=== PATIENT | female | born 1940 | race Caucasian/White ===

== ENCOUNTER 2016-05-17 09:15 | Day surgery (SDC) | payer OTHER ==
[2016-05-17] VITALS (14 sets, daily range): BP systolic 155–207; BP diastolic 59–114; PULSE 72–93; RESP 10–19; O2SAT 95–100
[~2016-05-17] VITALS: Ht 157.5 cm; Wt 53.5 kg
[~2016-05-17 09:15] MED LIST: ASPI-973 PO; CALC-243 PO; CeFAZolin Inj 2 GM in IV Premix 1 EACH IV ONE; EPIN0.3P2 IJ; MULT-1018 PO
[2016-05-17] MEDS ORDERED: Ondansetron 2 mg/mL 2 mL Inj ONE (09:16)
[2016-05-17] MEDS ORDERED: Dexamethasone 4 mg/mL Inj ONE (09:16)
[2016-05-17] MEDS ORDERED: fentaNYL-PF 50 mCg/mL 2 mL Inj ONE (09:16)
[2016-05-17] MEDS ORDERED: Propofol 10,000 mCg/mL 20 mL Inj ONE (09:16)
[2016-05-17] MEDS ORDERED: Bupivacaine-MPF 0.25% 30 mL Inj ONE (09:16)
[2016-05-17] MEDS ORDERED: Bupivacaine 0.5% 50 mL Inj ONE (09:16)
[2016-05-17] MEDS: Lactated Ringer's 1,000 ML IV SCH ×2 (09:20→11:57)
--- NOTE | 2016-05-17 11:01 | PCM.HPANE ---
Patient Data Surgeon Admitting Provider: Attending Provider:Doc Vasquez MD Primary Care Physician:Alanna Carl Other Provider: Reason for Visit Left Tibial Plateau Fracture Ht/WT & BMI Height (Feet): 5 Height (Inches): 2 Weight (Kilograms): 53.5 Body Mass Index 21.00 Allergies Uncoded Allergies: BEE STINGS (Allergy, Unknown, UNKNOWN, 05/13/16) Past Anesthesia History Anesthesia History: Denies:: Fam Anesthesia Reaction, Fam Malignant Hypertherm Diabetes History Hx Diabetes?: No MRSA MRSA: No Medications Blood Thinner: Aspirin Hypertension Medication: No Home Meds Incl Beta Sandie: No Reported Medications Multivitamin (Multi Vitamin Daily)1 Each Tablet1 Each PO DAILY 30 Days Ref 0 05/13/16 Epinephrine (Epipen 2-Reinier)0.3 Mg/0.3 Ml Auto.injct0.3 Mg IJ PRN 05/13/16 Calcium Carbonate/Vitamin D3 (Calcium 600 + Vit D Tablet)1 Each Tablet1 Each PO DAILY 05/13/16 Aspirin 81 Mg [id number] Mg PO DAILY Ref 0 05/13/16 History History of ENT Problems?: Yes HEENT History: Positive for:: Hearing Problem Hx of Heart Problems?: Yes Cardiovascular History: Positive for:: Hypertension (TRANSIENT HTN, HYPERLIPIDEMIA) Denies:: Heart Murmur Hx of Respiratory Problem?: No Respiratory History: Denies:: Use of C-PAP Machine Hx Neurologic Problems?: No Hx of GI Problems?: No Hx of Problems?: No Genitourinary History: Positive for:: Urinary Tract Infection Female Hx: Denies:: Currently Skin History: Positive for:: History 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) Denies:: Pressure Ulcers Hx Musculoskeletal Problems?: Yes Musculoskeletal History: Positive for:: Musculoskeletal Trauma (LT TIBIAL PLATEAU FX=CURRENT PROBLEM) Denies:: Osteoarthritis (OSTEOPOROSIS) Hx of Psycho/Social Problems?: Yes Psycho Social History: Positive for:: Anxiety (GETS "UPSET" EASILY) Hx Surgeries?: No Hx Any Other Health Problems?: No Other History: Denies:: Cancer Endocrine Disease Hospitalization Thyroid Disease History Blood Transfusions: Denies:: Blood Transfusions Hx Diabetes: No Hx Alcohol Use: Yes (OCCAS)Hx Substance Use: NoHave You Smoked inLast 12 mo: No Stop/Bang S-Snoring: Do You Snore Loudly: No T-Tired: feel tired, fatigued: No O-Obsered: Observed not breath: No P-Blood Pressure: treated: Yes B- Body Mass Index > 35 kg/m2: No A- Age over 50: Yes N- Neck Large Circumference: No G- Gender Male: No TEJINDER Total Score: 2 TEJINDER Risk Assessment: Low Risk, <3 Yes Risk Assessment Category Category 1A: Patient has history of documented sleep apnea, and HAS NOT received any narcotic, sedative or anesthesia administration during this stay. Category 1B: Patient has history of documented sleep apnea, and HAS received any narcotic , sedative or anesthesia administration during this stay Category 2: Patient has SUSPECTED Obstructive Sleep Apnea, and HAS received any narcotic , sedative or anesthesia administration during this stay. Category 3: Patient has SUSPECTED Obstructive Sleep Apnea and HAS NOT received narcotic, sedative or anesthesia administration during this stay. Category 4: Outpatient in Procedural Areas with known sleep apnea or who screen positive for High Risk via the STOP/BANG questionnaire. Exam Exam Vital Signs Vital Signs Date Time Temp Pulse Resp B/P Pulse Ox O2 Delivery O2 Flow Rate FiO2 05/17/16 09:45 72 16 159/59 97 Room Air General Appearance: Alert, Oriented X3, Cooperative, No Acute Distress HEENT/AIRWAY: MP 2 Lungs: Clear to Auscultation, Normal Air Movement Heart: Exam Unremarkable, Regular Rate/Rhythm, No Murmurs/Rubs/Gallops Meds/Labs/Diagnostics Admission Meds Current Medications Lactated Ringer's (Lr) 1,000 ml @ 120 mls/hr [id number] IV Last administered on t 09:20; Start 05/17/16 at 05:00; Stop 05/17/16 at 13:19 Plan Impression Patient chart reviewed, patient interviewed and anesthestic plan with risks, benefits, and alternatives discussed, and informed consent obtained. NPO Status: 2100 05/16/16 ASA Physical Status: ASA2 Mod Systemic Disease Anesthetic Plan: GA Bene/Risks/Altern/Consents: Yes HP Complete Prior to Induction: Yes Other LMA gen plus adductor canal block at request of dr Pedro Cifuentes,Pascual Grijalva MD May 17, 2016 11:01
[2016-05-17] MEDS ORDERED: hydrALAZINE 20 mg/mL Inj IVPUSH PRN (12:05)
[2016-05-17] MEDS ORDERED: HYDROmorphone 1 mg/mL Inj IVPUSH PRN (12:05)
[2016-05-17] MEDS ORDERED: Dexamethasone 4 mg/mL Inj IVPUSH PRN (12:05)
[2016-05-17] MEDS ORDERED: fentaNYL-PF 50 mCg/mL 2 mL Inj IVPUSH PRN (12:05)
[2016-05-17] MEDS ORDERED: MetoCLOpramide 5 mg/mL 2 mL Inj IVPUSH PRN (12:05)
[2016-05-17] MEDS ORDERED: Lactated Ringer's 1,000 ML IV SCH (12:05)
[2016-05-17] MEDS ORDERED: Labetalol 5 mg/mL 4 mL Inj IV PRN (12:05)
[2016-05-17] MEDS ORDERED: Ondansetron 2 mg/mL 2 mL Inj IVPUSH PRN (12:05)
[2016-05-17] MEDS ORDERED: Phenylephrine 10,000 mCg/mL Inj IVPUSH PRN (12:05)
[2016-05-17] MEDS ORDERED: Atropine 0.4 mg/mL Inj IVPUSH PRN (12:05)
[2016-05-17] MEDS ORDERED: EPHEDrine Sulfate 50 mg/mL Inj IVPUSH PRN (12:05)
[2016-05-17] MEDS ORDERED: Lactated Ringer's 500 ML IV PRN (12:05)
[2016-05-17] MEDS ORDERED: HYDROcodone-APAP 5-325 mg Tablet PO PRN (13:40)
[2016-05-17] MEDS ORDERED: Ketorolac 15 mg/mL Inj IVPUSH ONE (13:40)
--- NOTE | 2016-05-17 13:47 | PCM.ORTHOP ---
Orthopedic Operative Report Date of Service: May 17, 2016 Pre Operative Diagnosis Left both column tibial plateau fracture Post Operative Diagnosis Same Procedure Left tibial plateau, bicondylar, open reduction internal fixation with cancellus allograft Surgeon Surgeon: Doc Vasquez MD Assistants: Poncho Krishnamurthy Indication for Procedure Left tibial plateau fracture Findings Per dictation Details of Procedure Estimated Blood Loss: 10 mL Implant: Synthes 3.5 proximal tibia locking plate; cancellous allograft Indications: The patient is Carmen Don who is a 35-year-old female status- post a tibial plateau fracture. The risks, benefits, indications and alternatives of open reduction internal fixation were discussed with the patient in detail. The patient voiced understanding of the risks and agreed to proceed. All questions were answered to the patient's satisfaction. Verbal and written consent were obtained. Description of Operation: The patient was brought to the operating room. Patient name and surgical site were confirmed. Preoperative antibiotics were given. The patient was placed supine on the table. General anesthesia was administered. The leg was prepped and draped in the usual sterile fashion. A 10 cm lateral parapatellar incision was made. Subcutaneous dissection was sharply performed down to the iliotibial band. The meniscus was elevated and tagged with a #1 Ethibond for later repair. The lateral meniscus was mobilized and retracted proximally to visualize and probe the joint. The step off in the joint was noted along the lateral plateau with comminution and 1 cm depression. Using fluoroscopy, a bone window was made and a curved bone tamp was used to elevate the significantly depressed joint. A provisional K-wire was placed to hold the joint elevated. The Synthes 3.5 locking plate was then applied and affixed proximally and distally. Fluoroscopy determined excellent alignment of both fracture which was no longer depressed and position of the plate. 10 mL of cancellous allograft was then used through the bone window created to fill the defect from the elevated joint line. The medial column was supported with locking screws across the fracture site. The fracture was well reduced as confirmed with C-arm in AP and lateral views. All wounds were thoroughly irrigated by bulb irrigation. Hemostasis was obtained with electrocautery. The meniscus was reaffixed with 2.0 Fiberwire. The IT band was closed with 0 Vicryl. The subcutaneous space was closed with interrupted 2-0 Vicryl suture. The skin was closed with 2.0 Proline suture. The patient was extubated without difficulty and transferred to the PACU in stable condition. I was present for and supervised the entire procedure(s). Continue nonweightbearing left lower extremity for 6-8 weeks or until radiographic healing noted. Please take aspirin daily 81 mg for the next 4 weeks. Keep wound dry until 2 weeks. Grafts, Implants: Implants-See Implant Record Complications There were no periprocedural complications identified. Condition Stable Anesthetic Administered: GA Catheters: None Output, Estimated Blood Loss: 10 Blood Admin during surgery: No Surgical Cast or Splint: Post-op Knee Brace Surgical Specimen Removed: No Specimen sent to Pathology: No copies to: Doc Vasquez MD, Christopher L MD May 17, 2016 13:47
[2016-05-17] MEDS ORDERED: HYDROmorphone 0.5 mg/0.5 mL iSecure Syringe ONE (14:04)
--- NOTE | 2016-05-17 14:15 | PCM.ANEP1 ---
Post Anesthesia Phase 1 PACU Phase 1 Assessment Date of Service: May 17, 2016 Vital Signs Vital Signs Date Time Temp Pulse Resp B/P Pulse Ox O2 Delivery O2 Flow Rate FiO2 05/17/16 14:05 82 11 173/82 99 Nasal Cannula 2 05/17/16 13:55 85 10 189/83 95 Nasal Cannula 2 05/17/16 13:50 90 18 201/88 100 Room Air 05/17/16 13:45 89 19 200/114 100 Room Air 05/17/16 13:40 91 19 207/78 100 Simple Mask 8 05/17/16 13:35 90 16 171/93 100 Simple Mask 8 05/17/16 13:30 93 14 200/99 100 Simple Mask 8 05/17/16 13:27 36.3 92 13 188/91 100 Simple Mask 8 05/17/16 09:45 72 16 159/59 97 Room Air Anesthetic Administered: GA Level of Alertness: Awake, talking GORMAN's with Equal Strength: Yes Pain: No Nausea or Vomiting: No Airway Device: Oralpharangeal Airway Oxygen Delivery: Simple Mask Lungs: Clear to Auscultation, Normal Air Movement Pascual Cifuentes MD May 17, 2016 14:15
--- NOTE | 2016-05-20 08:56 | PCM.ANEP2 ---
Post Anesthesia Evaluation ASA/CMS Post Anesthesia VS in Patient's Normal Range?: Yes Resp Stable; Airway Patent?: Yes CV Function & Hydration Stable: Yes Mental Status Recovered?: Yes Pain control Satisfactory?: Yes N/V Control Satisfactory?: Yes Pascual Cifuentes MD May 20, 2016 08:56
== END 2016-05-17 23:59 | disposition home or self-care (01) ==
LOC: SAS 09:15
PROVIDERS: ATTEND Orthopaedic Surgery
DX: S82.142A Displaced bicondylar fracture of left tibia, initial encounter for closed fracture (principal); W01.0XXA Fall on same level from slipping, tripping and stumbling without subsequent striking against object, initial encounter; Y93.01 Activity, walking, marching and hiking; Y92.9 Unspecified place or not applicable; E78.5 Hyperlipidemia, unspecified; R03.0 Elevated blood-pressure reading, without diagnosis of hypertension; M81.0 Age-related osteoporosis without current pathological fracture; R25.2 Cramp and spasm; Z79.82 Long term (current) use of aspirin
CPT/HCPCS: 27535; 76001; C1713; J0690; J1100; J1170; J1885; J2175; J2250; J2405; J3010; J7120